=== PATIENT | female | born 1995 | race African-American/Black ===

== ENCOUNTER 2019-02-20 09:00 | Outpatient (CLI) | payer OTHER ==
[2019-02-20 17:18] LABS: MUDS CUTOFF CONCENTRATIONS CUTOFF CONC BELOW:
[2019-02-20 18:05] LABS: AMPHETAMINE SCREEN,URINE NEGATIVE (NEGATIVE); BENZODIAZEPINES SCREEN, URINE NEGATIVE (NEGATIVE); COCAINE SCREEN URINE NEGATIVE (NEGATIVE); METHADONE SCREEN, URINE NEGATIVE (NEGATIVE); METHAMPHETAMINES SCREEN, URINE NEGATIVE (NEGATIVE); OPIATE SCREEN, URINE NEGATIVE (NEGATIVE); OXYCODONE SCREEN, URINE NEGATIVE (NEGATIVE); PROPOXYPHENE SCREEN, URINE NEGATIVE (NEGATIVE); TRICYCLIC ANTIDEPRESSANT,URINE NEGATIVE (NEGATIVE)
[2019-02-20 21:59] LABS: TRICHOMONAS VAGINALIS DNA NEGATIVE (NEGATIVE)
== END 2019-02-20 23:59 | disposition home or self-care (01) ==
LOC: LAB.R 09:00
PROVIDERS: ATTEND Nurse Practitioner Obstetrics & Gynecology
DX: Z36.89 Encounter for other specified antenatal screening (principal)
CPT/HCPCS: 80306; 87086; 87491; 87591; 87661

== ENCOUNTER 2019-02-20 13:55 | Outpatient (CLI) | payer OTHER ==
--- NOTE | 2019-02-21 09:48 | Ultrasound Report ---
Reason: SUPERVISION OF NORMAL Procedure Date: 02/20/2019 Accession Number: [id number] / [id number] Procedure: US - OB Detailed Eval CPT Code: Final Report FULL RESULT: EXAM: COMPLETE OBSTETRICAL ULTRASOUND EXAM DATE: 02/20/2019 04:03 PM. CLINICAL HISTORY: anatomic survey. COMPARISON: None. TECHNIQUE: Real-time sonographic evaluation of the fetus performed by the hospitality team member. Multiple call center support representative static images were saved for review. Additional transvaginal images were obtained for better assessment of the cervix. DATING: Established EGA 24 weeks 5 days with JERMAN 06/07/2019 based on LMP. EGA 24 weeks 2 days with JERMAN 06/10/2019 based on the current ultrasound. GENERAL EVALUATION [place] . Cardiac activity: 155 bpm. movement: Visualized. Presentation: Variable. Placenta: Posterior position. No evidence for previa. Umbilical cord: 3 vessel cord. Central placental cord origin. Amniotic fluid: Subjectively normal. MVP 6.0 cm and HUYEN of 20.8 cm. BIOMETRY Bi-Parietal Diameter (BPD): 6.0 cm, 24 weeks 3 days Head Circumference (HC): 22.2 cm, 24 weeks 2 days Abdominal Circumference (AC): 18.6 cm, 23 weeks 3 days Femur Length (FL): 4.6 cm, 25 weeks 1 day Estimated Weight: 670 g, 20th percentile for 24 weeks 5 days. ANATOMY The intracranial structures, profile, face/nose/lips, spine, 4 chamber heart and outflow tracts, stomach, abdominal wall and cord insertion, diaphragm, kidneys, bladder, and extremities were visualized and demonstrate no abnormality. MATERNAL STRUCTURES Uterus: Unremarkable. Cervix: Long and closed. Transvaginal length 4 cm. Right ovary/adnexa: Unremarkable. Left ovary/adnexa: Unremarkable. Free fluid: None. IMPRESSION: 1. [place] live intrauterine with gestational age 24 weeks 5 days based on LMP. 2. Estimated weight is within expected limits for assigned dating. 3. Normal anatomic survey. No anatomic abnormalities are detected at this time. RADIA
== END 2019-02-20 13:56 | disposition home or self-care (01) ==
LOC: DI 13:55
PROVIDERS: ATTEND Obstetrics & Gynecology
DX: Z34.92 Encounter for supervision of normal pregnancy, unspecified, second trimester (principal); Z36.89 Encounter for other specified antenatal screening
CPT/HCPCS: 76811; 80306; 87086; 87491; 87591; 87661

== ENCOUNTER 2019-05-08 08:00 | Outpatient (CLI) | payer OTHER ==
[2019-05-08 22:32] LABS: TRICHOMONAS VAGINALIS DNA NEGATIVE (NEGATIVE)
== END 2019-05-08 23:59 | disposition home or self-care (01) ==
LOC: LAB.R 08:00
PROVIDERS: ATTEND Nurse Practitioner Obstetrics & Gynecology
DX: Z36.85 Encounter for antenatal screening for Streptococcus B (principal)
CPT/HCPCS: 87081; 87491; 87591; 87661; 87797

== ENCOUNTER 2019-05-08 12:05 | Outpatient (CLI) | payer OTHER ==
[2019-05-08 12:33] LABS: BASOPHILS % (AUTO) 0.3 %; EOSINOPHILS % (AUTO) 0.4 %; LYMPHOCYTES # (AUTO) 1.6 10^3/uL (1.5-3.5); LYMPHOCYTES % (AUTO) 14.4 %; MEAN CORPUSCULAR HEMOGLOBIN 27.8 pg (27.0-31.0); MEAN PLATELET VOLUME 12.9 fL (7.9-10.8); MONOCYTES # (AUTO) 0.9 10^3/uL (0.0-1.0); MONOCYTES % (AUTO) 8.1 %; NEUTROPHILS # (AUTO) 8.4 10^3/uL (1.5-6.6); NEUTROPHILS % (AUTO) 75.7 %; PLT - PLATELET COUNT 173 10^3/uL (130-450); RED BLOOD COUNT 4.31 10^6/uL (4.20-5.40); RED CELL DISTRIBUTION WIDTH 13.7 % (12.0-15.0); WHITE BLOOD COUNT 11.1 x10^3/uL (4.8-10.8)
[2019-05-09 12:08] LABS: HEPATITIS B SURFACE ANTIGEN NON-REACTIVE (NON-REACTIVE)
[2019-05-09 14:34] LABS: HIV AG/AB 4TH GEN NON-REACTIVE (NON-REACTIVE)
== END 2019-05-08 12:06 | disposition home or self-care (01) ==
LOC: LAB 12:05
PROVIDERS: ATTEND Nurse Practitioner Obstetrics & Gynecology
DX: Z36.89 Encounter for other specified antenatal screening (principal); Z36.85 Encounter for antenatal screening for Streptococcus B
CPT/HCPCS: 36415; 81599; 85025; 86592; 86762; 86850; 86900; 86901; 87081; 87340; 87389; 87491; 87591; 87661; 87797

== ENCOUNTER 2019-06-09 04:56 | Inpatient (IN) | payer OTHER ==
[2019-06-09] MEDS ORDERED: SODIUM CHLORIDE FLUSH 0.9% 10 ML SYRINGE IVP PRN (05:15)
[2019-06-09] MEDS ORDERED: AMPICILLIN 2 GM in SODIUM CHLORIDE 0.9% MINIBAG 100 ML IV ONE (05:15)
[2019-06-09] MEDS ORDERED: ONDANSETRON 4 MG/2 ML VIAL IVP PRN (05:15)
[2019-06-09] MEDS ORDERED: OXYTOCIN/SODIUM CHLORIDE 500 ML IV PRN (05:15)
[2019-06-09] MEDS ORDERED: OXYTOCIN/SODIUM CHLORIDE 500 ML IV ONE (05:29)
[2019-06-09] MEDS ORDERED: LACTATED RINGERS 1,000 ML IV ONE (05:29)
[2019-06-09 06:04] LABS: BASOPHILS % (AUTO) 0.3 %; EOSINOPHILS % (AUTO) 0.2 %; HGB - HEMOGLOBIN 11.9 g/dL (12.0-16.0); LYMPHOCYTES # (AUTO) 2.1 10^3/uL (1.5-3.5); LYMPHOCYTES % (AUTO) 16.2 %; MEAN CORPUSCULAR HEMOGLOBIN 27.8 pg (27.0-31.0); MEAN CORPUSCULAR HGB CONC 32.4 g/dL (32.0-36.0); MEAN CORPUSCULAR VOLUME 85.7 fL (81.0-99.0); MEAN PLATELET VOLUME 12.7 fL (7.9-10.8); MONOCYTES # (AUTO) 1.1 10^3/uL (0.0-1.0); NEUTROPHILS # (AUTO) 9.8 10^3/uL (1.5-6.6); NEUTROPHILS % (AUTO) 74.2 %; PLT - PLATELET COUNT 182 10^3/uL (130-450); RED BLOOD COUNT 4.28 10^6/uL (4.20-5.40); RED CELL DISTRIBUTION WIDTH 14.7 % (12.0-15.0); WHITE BLOOD COUNT 13.1 x10^3/uL (4.8-10.8)
[2019-06-09] MEDS: LACTATED RINGERS 1,000 ML IV SCH ×3 (06:04→15:27)
[2019-06-09] MEDS: fentaNYL 100 MCG/2 ML VIAL IVP PRN ×2 (06:37→06:43)
--- NOTE | 2019-06-09 07:23 | HISTORY & PHYSICAL EXAMINATION ---
Admit History - Visit Reason Visit Reason: Contractions - : 2 Parity: 1 Premature: 0 Ectopic: 0 : 0 Care: positive: [facility] Risk/History: positive: None Complications This : positive: None Smoking Status: Never smoker - Mother's Labs Mother's Blood Type: positive: O Mother's RH: positive: Positive GBS: positive: Group B Strep Positive Rubella Status: positive: Immune Meds/Allgy - Allergies Allergies/Adverse Reactions: Allergies Allergy/AdvReac Type Severity Reaction Status Date / Time No Known Drug Allergies Allergy Verified 06/09/19 05:31 Review of Systems - Constitutional Constitutional: denies: Fever, Chills, Malaise - Eyes Eyes: denies: Blurred vision, Spots in vision, Dipolpia - Cardiovascular Cariovascular: denies: Irregular heart rate, Chest pain, Edema - Respiratory Respiratory: denies: SOB at rest - Gastrointestinal Gastrointestinal: denies: Change in bowel habits - Integumentary Integumentary: denies: Rash, Pruritis - Neurological Neurological: denies: Headache Physical - Abdominal Exam Contraction Frequency (min/apart): 4-6 Contraction Intensity: positive: Strong Uterine Resting Tone: positive: Soft - Monitoring Heart Rate Baseline: 150 Strip Review: positive: Category I - Presentation Presentation: positive: Vertex - Vaginal Exam Membranes: positive: Membranes intact Dilation (in cm): 6 Effacement (%): 80 Station: positive: -2 - Speculum Exam Speculum Exam Performed: positive: No Plan for Labor - Plan For Labor I expect patient to be DC'd or transferred within 96 hours.: Yes Plan for Labor: HPI: This 23yo @ 40.4wks gestation by LMP c/w 16wk U/S presented to [facility] on 06/09/2019 at 0500 with complaints of contractions throughout the night which had gradually increased in frequency and intensity. She denies vaginal bleeding or leakage or fluid and reports +FM. Upon arrival cervix was noted to be 4/80/-2, vertex with intact membranes. FHR Category I. She had been a patient of [facility] since 24wks gestation at which time she transferred her care from [facility]. Her has been complicated only by somewhat inconsistent visits as well as testing positive for GBS at 36 weeks gestation. She was admitted to [facility] for expectant management. Dating criteria: LMP 08/31/2018 Initial ultrasound at 16wks gestation c/w LMP dating Serial exams - agree OB Hx: G1: 07/02/2016 @ 39wk , female G2: Current Medications: PNV Allergies: none PMHx: No significant Surgical Hx: None Social Hx: No ETOH or IVDA. Never smoker. Family Hx: No significant labs: O pos/Rubella-immune Gentic testing: declined Glucola 96 GBS POSITIVE Ultrasounds: Initial U/S: @ 16.4wks gestation c/w LMP dating FAS: WNL. 3VC. Posterior placenta, no previa. Size c/w dating. Immunizations: TDAP declined Physical Exam: Normocephalic, atraumatic Heart RRR w/o M/G/R Lungs CTAB Abdomen gravid, soft, nontender EFW 3000g FHR Category I SVE now 6/80/-2, vertex with intact membranes Bilateral LE's no edema Assessment: 23yo @ 40.4wks gestation by LMP c/w 16wk U/S GBS positive Active labor Plan: Admit for expectant management Initiate ampicillin for GBS prophylaxis per protocol Intermittent monitoring Jacuzzi PRN. Nitrous oxide PRN. Epidural per pt request - pt desires unmedicated delivery Anticipate .
[2019-06-09] MEDS ORDERED: OXYTOCIN/SODIUM CHLORIDE 0 ML IV ONE (08:02)
[2019-06-09] MEDS ORDERED: LIDOCAINE-MPF 1% 30 ML VIAL ONE (08:02)
--- NOTE | 2019-06-09 08:41 | PROVIDER PROGRESS NOTE ---
Labor Progress Note - Uterine Monitoring Contraction Frequency (min/apart): 3-6 Contraction Intensity: positive: Strong Uterine Resting Tone: positive: Soft - Monitoring Monitor Mode: positive: External ultrasound Heart Rate Baseline: 135 Heart Rate Variability: positive: Moderate (6-25 bmp) Accelerations: positive: Present, 15x15 Decelerations: positive: Early, Intermittent (<50% x20 min) Strip Review: positive: Category I - Vaginal Exam Dilation (in cm): 7-8 Effacement (%): 100 Station: 0 Cervical Position: Anterior - Labor Progress Note Labor Progress Note/Additional Text: S: Sitting in high fowlers position in bed. Feeling increased pressure and discomfort with contractions. She requests additional pain medication via IV but declines epidural. She is willing to try nitrous oxide first after we reviewed my hesitancy in giving her Fentanyl IV this close to delivery. She is breathing through contractions and overall coping well. Her is supportive at the bedside. O: FHR baseline 135, moderate variability, + accels, intermittent early decelerations. Brief period of minimal variability following administration of 50mcg fentanyl. Contractions palpate firm every 3-6 minutes with soft resting tone. SVE 7-8/100/0, vertex, intact membranes with bulging BOW A: 23yo @ 40.4wks gestation by LMP c/w 16wk U/S GBS positive s/p loading dose of ampicillin FHR Category I P: Continue expectant management Nitrous oxide PRN. Epidural per maternal request Anticipate
[2019-06-09] MEDS: AMPICILLIN 1 GM in SODIUM CHLORIDE 0.9% MINIBAG 100 ML IV SCH ×3 (10:08→15:26)
--- NOTE | 2019-06-09 10:55 | PROVIDER PROGRESS NOTE ---
Labor Progress Note - Uterine Monitoring Uterine Monitoring Mode: positive: External toco : 3-6 Contraction Intensity: positive: Strong Uterine Resting Tone: positive: Soft - Monitoring Monitor Mode: positive: External ultrasound Heart Rate Baseline: 155 Heart Rate Variability: positive: Moderate (6-25 bmp) Accelerations: positive: Present, 15x15 Decelerations: positive: Early, Intermittent (<50% x20 min) Strip Review: positive: Category I - Vaginal Exam Dilation (in cm): 8 Effacement (%): 100 Station: 0 Cervical Position: Anterior - Labor Progress Note Labor Progress Note/Additional Text: S: Breathing through contractions sitting in the bed and using the nitrous oxide. She has progressively felt increased pressure with contractions. Coping well. supportive at the bedside. O: FHR baseline 150, moderate variabilty, + accels, intermittent early decelerations Contractions palpate strong every 3-6 minutes with soft resting tone SVE 8/100/0, vertex AROM small amount of clear fluid A: 23yo @40.4wks gestation by LMP c/w 16wk U/S GBS positive s/p 2 doses of ampicillin for prophylaxis per protocol Active labor P: Continue expectant management Continuous monitoring Continue nitrous oxide PRN Encouraged position changes as comfortable. Reviewed optimal positioning to open pelvis. Anticipate
[2019-06-09] MEDS ORDERED: WITCH HAZEL/GLYCERIN 1 PAD TOP PRN (13:17)
[2019-06-09] MEDS ORDERED: HYDROCORTISONE 1% CREAM 28 GM TUBE PR PRN (13:17)
--- NOTE | 2019-06-09 13:17 | DELIVERY NOTE ---
Delivery Note - Labor Labor: positive: Spontaneous - Delivery Method Delivery Method: positive: Spontaneous vaginal delivery - Presentation Presentation: positive: Vertex, DEMETRIS - left occiput anterior - Nuchal Cord Nuchal Cord: positive: None - Amniotic Fluid Description Amniotic Fluid Description: positive: Clear - Episiotomy Type Episiotomy Type: positive: None - Laceration Laceration: positive: None - Delivery Outcome Delivery Outcome: positive: Livebirth - [place]: positive: Placed in direct skin contact with mother, Stimulated, Warmed, [place] used sex: positive: Female - Cord Cord: positive: 3 vessels - Placenta Placenta: positive: Intact, Spontaneous - Estimated Blood Loss Estimated Blood Loss (in cc): 250 - Post Delivery Events Post Delivery Events: positive: Shoulder dystocia - Delivery Comments (Free Text/Narrative) Delivery Comments (Free Text/Narrative): Labor: This 23yo @ 40.4wks gestation presented on 06/09/2019 @ 0500 in early labor. Cervix was 4/80/-2, vertex with intact membranes. FHR pattern demonstrated Category I pattern throughout labor. Normal labor course. AROM occurred at 1047 and was noted to be a small amount of clear fluid. The patient progressed to anterior lip with strong spontaneous urge to push. Anterior lip easily reduced. : of viable female on 06/09/2019 with delivery of infant head at 1231 with 65 second shoulder dystocia which was resolved with Marcy position and rotation of anterior shoulder. Delivery of occurred at 1232. The umbilical cord was doubly clamped and cut by FOB. Pitocin administered via IV for hemostasis. Cord blood was obtained. 3VC. Apgars were 8/9 at 1 and 5 min respectively. Placenta delivered spontaneously and intact at 1242. EBL 250mL. Fourth stage: Uterine fundus firm and there is no excessive bleeding. The perineum, vagina, and cervix were inspected and found to be intact. Skin to skin contact initiated. Family bonding well. Both mother and baby were left in stable condition.
[2019-06-09] MEDS: ACETAMINOPHEN 500 MG TABLET PO SCH (14:38)
[2019-06-09] MEDS: IBUPROFEN 800 MG TABLET PO SCH ×2 (14:38→20:28)
[2019-06-09] MEDS: SODIUM CHLORIDE FLUSH 0.9% 10 ML SYRINGE IVP SCH ×2 (15:24→15:26)
[2019-06-09] MEDS ORDERED: HYDROcod/ACETAM 5/325 MG TABLET PO ONE (19:00)
[2019-06-09] MEDS: DOCUSATE SODIUM 100 MG CAPSULE PO SCH (20:30)
[2019-06-10] MEDS: IBUPROFEN 800 MG TABLET PO SCH (02:58)
[2019-06-10] MEDS: ACETAMINOPHEN 500 MG TABLET PO SCH (05:06)
--- NOTE | 2019-06-10 06:07 | PROVIDER PROGRESS NOTE ---
Subjective - Subjective Subjective: FINAL PROGRESS NOTE: S: Bonding well with baby. without difficulty. Feeling tired because baby wanted to nurse all night. Reports significant improvement in any discomfort she had last evening and feels well controlled with ibuprofen and tylenol. Bleeding decreased and is very light. She is really wanting to go home today. O: BP 114/63, RR 18, HR 99, T 37.0 Heart RRR w/o M/G/R, lungs CTAB, abdomen soft and nontender with fundus firm at U-1, perineum intact, bilateral LE's no edema A: 23yo -->P2 PPD#1 s/p TSVD of viable female Perineum intact P: Reviewed pp self care and warning s/sx. Advised continuation of PNV while . Advised continuation of ibuprofen and tylenol OTC as needed for pain management. Return in 3 weeks for routine pp visit or sooner prn. Pt verbalized understanding and agrees to above plan. She denies further questions or concerns at this time. Objective - Vital Signs/Intake & Output Vital Signs: Vital Signs x48h Temp Pulse Resp BP Pulse Ox 06/10/19 04:50 37.0 C 102 H 18 114/63 99 06/09/19 23:27 37.0 C 99 20 127/80 100 Intake & Output: Intake & Output 06/07/19 06/08/19 06/09/19 06/10/19 23:59 23:59 23:59 23:59 Intake Total 1290 500 Output Total 1000 Balance 290 500 - Lab Results Fish Bones: 06/09/19 05:55 Other Labs: Lab Results x24hrs 06/09/19 Range/Units 05:55 WBC 13.1 H (4.8-10.8) x10^3/uL RBC 4.28 (4.20-5.40) 10^6/uL Hgb 11.9 L (12.0-16.0) g/dL Hct 36.7 L (37.0-47.0) % MCV 85.7 (81.0-99.0) fL MCH 27.8 (27.0-31.0) pg MCHC 32.4 (32.0-36.0) g/dL RDW 14.7 (12.0-15.0) % Plt Count 182 (130-450) 10^3/uL MPV 12.7 H (7.9-10.8) fL Neut # (Auto) 9.8 H (1.5-6.6) 10^3/uL Lymph # (Auto) 2.1 (1.5-3.5) 10^3/uL [place] # (Auto) 1.1 H (0.0-1.0) 10^3/uL Eos # (Auto) 0.0 (0.0-0.7) 10^3/uL Baso # (Auto) 0.0 (0.0-0.1) 10^3/uL Absolute Nucleated RBC 0.00 x10^3/uL Nucleated RBC % 0.0 /100WBC
--- NOTE | 2019-06-10 06:08 | Discharge Plan ---
Discharge Plan Problem Reviewed?: Yes Disposition: Home, Self Care Condition: Good Diet: Regular Shower Restrictions: No Driving Restrictions: No Weight Bearing: Full Weight No Smoking: If you smoke, Please STOP! Call for help. Follow-up with: Michelle Faith CNM, ARNP [Provider Admit Priv/Credential] -
--- NOTE | 2019-06-10 06:35 | DISCHARGE SUMMARY ---
Physician: GAIL Rivero DATE OF ADMISSION: 06/09/2019 DATE OF DISCHARGE: 06/10/2019 DIAGNOSES ON ADMISSION 1. A 23-year-old G2, P1-0-0-1, at 40.4 weeks' gestation by LMP consistent with 16-week ultrasound. 2. Group B streptococcus positive. 3. Active labor. DIAGNOSES ON DISCHARGE 1. A 23-year-old G2, P2-0-0-2 status post spontaneous vaginal delivery on 06/09/2019. 2. Normal recovery. 3. . HISTORY OF PRESENT ILLNESS: She is a patient of [facility] who presented on 020 at 0500 in early labor. Cervix was 4 cm dilated, 80% effaced, -2 station, vertex position with i ntact membranes. heart rate pattern demonstrated a category 1 throughout labor. Artificial ru pture of membranes occurred at 10:47 and was noted to be a small amount of clear fluid. The patient progressed to spontaneously deliver a viable female on 06/09/2019 with delivery of infant head at 1231 with a 65 second shoulder dystocia, which was resolved with Marcy maneuver and rotation of the anterior shoulder. Delivery of infant occurred at 12:32. Apgars were 8 and 9 at 1 and 5 yon reva, respectively. EBL 250 mL. The placenta delivered spontaneously intact at 12:42. Pitocin was a dministered via IV for hemostasis. The perineum, vagina and cervix were inspected and found to be in tact. She has been doing well in her course. She is ambulating and tolerating a regular diet. She is urinating without difficulty and her lochia is normal. Her pain is well controlled with oral medications. She will be discharged home today on day #1 with instructions to continue he r vitamin while as well as to continue ibuprofen and Tylenol [id number] as needed for pain management. She intends to followup with myself at [facility] in 3 weeks for routine visit or sooner if needed. She has been given precautions to call if she has any worsening fevers, chills, abdominal pain, increased bleeding or foul-smelling vaginal lo adwoa. TD: 06/10/2019 06:19
[2019-06-10] MEDS: DOCUSATE SODIUM 100 MG CAPSULE PO SCH (08:55)
[2019-06-10 12:19] VITALS: BP 133/80
--- NOTE | 2019-06-10 16:05 | Labor Flowsheet ---
Labor Flowsheet Datetime Report Generated by CPN: 06/10/2019 16:04 Datetime: 06/09/2019 14:30 VITAL SIGNS NBP Sys/Blanca/Mean (mmHg): 136 : 73 : 87 Pulse: 88 Pain Presence: Intermittent Pain Type: Dull Pain Location: Abdomen; Perineum LaborFlag: Labor Datetime: 06/09/2019 12:47 Respirations: 18 SpO2 (%): 100 Temperature (C): 37.1 Datetime: 06/09/2019 12:45 Pain Assessment Comments: To receive ibuprofen and Tylenol; ice pack in place Datetime: 06/09/2019 12:32 UTERINE ACTIVITY Monitor Mode: External Frequency (min): 1-3 Quality: Strong Pattern: Normal: <= 5 Contractions in 10 Minutes Resting Tone (Palpate): Relaxed Contraction Comments: Pushing ASSESSMENT A Monitor Mode: Telemetry FHR Baseline Rate : 140 Variability: Minimal - Undetectable to <=5 bpm Accelerations: 15X15 Decelerations: Variable Category: Category II PATIENT CARE Oxygen Method: Room Air Datetime: 06/09/2019 12:07 Patient Care Comments: Nitrous oxide on Datetime: 06/09/2019 12:00 Duration (sec): 70-90 Datetime: 06/09/2019 11:58 Pain Coping: Crying; Writhing STAGE 2 Pushing: Coached on Pushing; Urge to Push Pushing Position: Pushing with Contractions Pushing Progress: Descent with Pushing Datetime: 06/09/2019 11:54 VAGINAL EXAM Dilatation (cm): 9.5 Effacement (%): 100 Station: 1 Exam by: nomi reynaldo cnm COMMUNICATION Communication: Provider at Bedside Communication Comments: nomi reynaldo cnm Datetime: 06/09/2019 11:23 Patient Position/Activity: Hands-Knees Datetime: 06/09/2019 11:16 Vaginal Exam Comments: Lip of cervix Datetime: 06/09/2019 11:13 Provider Notified (Name): Nomi Reynaldo, CNM, [employer]PER[employer] Datetime: 06/09/2019 10:47 Membrane Status: Ruptured Membranes Rupture Method: Artificial Amniotic Fluid Color: Clear Amniotic Fluid Amount: Small Datetime: 06/09/2019 10:08 Antibiotics: Ampicillin IV 1 Gm Datetime: 06/09/2019 09:59 Monitor Interventions for FHR: Ultrasound Adjusted Datetime: 06/09/2019 09:21 Comfort Measures: Hot Shower/Tub/Spa Datetime: 06/09/2019 09:00 FHR Baseline Changes: No Baseline Change Comments: Increased baseline to 145 Datetime: 06/09/2019 08:49 I/O Interventions: Up to BR Datetime: 06/09/2019 07:30 PAIN Pain Scale: 7 Pain Goal: 8 DTR's/Clonus: DTRs 2+; No Clonus Headache: Denies Breath Sounds, Left: Clear and Equal Breath Sounds, Right: Clear and Equal Nausea/Vomiting: Denies RUQ Epigastric Pain: Denies Datetime: 06/09/2019 06:43 MEDICATIONS Analgesics/Sedatives: Fentanyl (mcg) @ 50 Datetime: 06/09/2019 06:33 Vaginal Bleeding: None Cervix, Consistency: Soft Cervix, Position: Midposition Datetime: 06/09/2019 06:01 MATERNAL ASSESSMENT Level of Consciousness: Fully Conscious
== END 2019-06-10 15:15 | disposition home or self-care (01) | DRG 807 ==
LOC: WFO 04:56 → FBP 05:00 → WFO 05:14 → FBP 05:15
PROVIDERS: ADMIT Nurse Practitioner Obstetrics & Gynecology; ATTEND Nurse Practitioner Obstetrics & Gynecology
PROC: 10E0XZZ Delivery of Products of Conception, External Approach (ICD-10-PCS; principal; 2019-06-09)
PROC: 10907ZC Drainage of Amniotic Fluid, Therapeutic from Products of Conception, Via Natural or Artificial Opening (ICD-10-PCS; 2019-06-09)
DX: O99.824 Streptococcus B carrier state complicating childbirth (principal); Z37.0 Single live birth; Z3A.40 40 weeks gestation of pregnancy; O66.0 Obstructed labor due to shoulder dystocia
CPT/HCPCS: 85025; A9270; J7120; 99213

== ENCOUNTER 2019-10-31 11:56 | Outpatient (CLI) | payer OTHER | END 2019-10-31 11:57 | disposition home or self-care (01) | LOC: LAB 11:56 | PROVIDERS: ATTEND Advanced Practice Midwife | DX: O80 Encounter for full-term uncomplicated delivery (principal); Z37.9 Outcome of delivery, unspecified; Z3A.00 Weeks of gestation of pregnancy not specified | CPT/HCPCS: 36415; 84443 ==